=== PATIENT | female | born 1950 | race Caucasian/White ===

== ENCOUNTER 2018-04-22 15:03 | Outpatient (REF) | payer MEDICARE, BC, SELFPAY ==
[2018-04-22 21:22] LABS: Abs Immature Grans 0.01 k/cumm (0.0-0.09); Absolute Basophil Count 0.01 k/cumm (0.0-0.2); Absolute Eosinophil Count 0.15 k/cumm (0.0-0.7); Absolute Lymphocyte Count 1.49 k/cumm (1.2-3.4); Absolute Monocyte Count 0.57 k/cumm (0.11-0.7); Basophils % 0.1; Eosinophils % 2.1; HGB 11.7 g/dL (12.0-15.5); Immature Grans % 0.1; Lymphocytes % 21.2; Mean Corp. HGB Concentration 31.6 g/dL (32.0-36.0); Mean Corpuscular Volume 91.8 fL (80-95); Mean Platelet Volume 12.6 fL (8.0-11.0); Monocytes % 8.1; Neutrophils % 68.4; Platelet Count 262 x1000/uL (130-400); RBC 4.03 m/cumm (4.00-5.20); RBC Distribution Width 14.5 % (11.7-14.6); White Blood Cell Count 7.03 k/cumm (4.4-10.8)
[2018-04-22 21:56] LABS: ALT 18 U/L (12-78); AST 11 U/L (15-37); Albumin 3.2 g/dL (3.4-5.0); Alkaline Phosphatase 106 U/L (46-116); Anion Gap 12.6 mmol/L (3-11); BUN 28 mg/dL (7-18); Bilirubin, Total 0.2 mg/dL (0.2-1.0); CO2 21.4 mmol/L (21.0-32.0); CREATININE 1.31 mg/dL (0.55-1.02); Calcium 8.4 mg/dL (8.5-10.1); Chloride 108 mmol/L (98-107); Cholesterol 156 mg/dL (50-200); Estimated GFR 40.62 (mL/min/1.73m2); Glucose 124 mg/dL (70-100); HDL Cholesterol 61 mg/dL (40-60); LDL CHOLESTEROL 78 mg/dL (<100); Potassium 4.5 mmol/L (3.5-5.1); Sodium 142 mmol/L (136-145); Total Protein 6.6 g/dL (6.4-8.2); Triglyceride 104 mg/dL (30-150)
== END 2018-04-22 15:04 ==
LOC: NCHCN 15:03
PROVIDERS: PCP Family Medicine; Visit Provider Family Medicine
DX: N18.9 Chronic kidney disease, unspecified (principal); D64.9 Anemia, unspecified; I10 Essential (primary) hypertension
CPT/HCPCS: 80053; 80061; 83721; 85025

== ENCOUNTER 2019-04-13 10:33 | Outpatient (REF) | payer MEDICARE, BC, SELFPAY ==
[2019-04-13 22:56] LABS: Abs Immature Grans 0.01 k/cumm (0.0-0.09); Absolute Basophil Count 0.02 k/cumm (0.0-0.2); Absolute Eosinophil Count 0.17 k/cumm (0.0-0.7); Absolute Monocyte Count 0.36 k/cumm (0.11-0.7); Absolute Neutrophil Count 4.56 k/cumm (1.2-6.7); Basophils % 0.3; Eosinophils % 2.7; HCT 36.7 % (36.0-46.0); HGB 11.5 g/dL (12.0-15.5); Immature Grans % 0.2; Lymphocytes % 17.7; Mean Corp. HGB Concentration 31.3 g/dL (32.0-36.0); Mean Corpuscular Hemoglobin 29.3 pg (27.0-33.0); Mean Corpuscular Volume 93.6 fL (80-95); Mean Platelet Volume 12.8 fL (8.0-11.0); Monocytes % 5.8; Neutrophils % 73.3; Platelet Count 240 x1000/uL (130-400); RBC 3.92 m/cumm (4.00-5.20); RBC Distribution Width 16.6 % (11.7-14.6); White Blood Cell Count 6.22 k/cumm (4.4-10.8)
[2019-04-13 23:15] LABS: Anion Gap 9.1 mmol/L (3-11); BUN 55 mg/dL (7-18); CO2 19.9 mmol/L (21.0-32.0); CREATININE 2.02 mg/dL (0.55-1.02); Calcium 8.6 mg/dL (8.5-10.1); Calculated LDL 104 mg/dL; Chloride 109 mmol/L (98-107); Cholesterol 185 mg/dL (50-200); Estimated GFR 24.57 (mL/min/1.73m2); Glucose 89 mg/dL (70-100); HDL Cholesterol 46 mg/dL (40-60); Sodium 138 mmol/L (136-145); Triglyceride 175 mg/dL (30-150)
[2019-04-13 23:27] LABS: Potassium 6.6 mmol/L (3.5-5.1)
[2019-04-13 23:47] LABS: TSH (W/Ref FT4) 2.67 uIU/mL (0.36-3.74)
== END 2019-04-13 10:53 ==
LOC: NCHCN 10:33
PROVIDERS: PCP Family Medicine; Visit Provider Family Medicine
DX: N18.9 Chronic kidney disease, unspecified (principal); I48.0 Paroxysmal atrial fibrillation; R73.01 Impaired fasting glucose; R53.83 Other fatigue
CPT/HCPCS: 80048; 80061; 83721; 83036; 84443; 85025

== ENCOUNTER 2019-04-19 11:57 | Outpatient (REF) | payer MEDICARE, BC, SELFPAY ==
[2019-04-19 22:30] LABS: Anion Gap 15.4 mmol/L (3-11); BUN 42 mg/dL (7-18); CO2 19.6 mmol/L (21.0-32.0); CREATININE 1.77 mg/dL (0.55-1.02); Calcium 8.9 mg/dL (8.5-10.1); Chloride 111 mmol/L (98-107); Estimated GFR 28.61 (mL/min/1.73m2); Glucose 119 mg/dL (70-100); Potassium 5.9 mmol/L (3.5-5.1); Sodium 146 mmol/L (136-145)
== END 2019-04-19 12:17 ==
LOC: NCHCN 11:57
PROVIDERS: PCP Family Medicine; Visit Provider Family Medicine
DX: E87.6 Hypokalemia (principal); I10 Essential (primary) hypertension
CPT/HCPCS: 80048

== ENCOUNTER 2019-04-25 12:01 | Outpatient (REF) | payer MEDICARE, BC, SELFPAY ==
[2019-04-25 21:32] LABS: Anion Gap 11.6 mmol/L (3-11); BUN 41 mg/dL (7-18); CO2 21.4 mmol/L (21.0-32.0); CREATININE 1.46 mg/dL (0.55-1.02); Calcium 8.6 mg/dL (8.5-10.1); Chloride 110 mmol/L (98-107); Estimated GFR 35.73 (mL/min/1.73m2); Glucose 67 mg/dL (70-100); Potassium 5.7 mmol/L (3.5-5.1); Sodium 143 mmol/L (136-145)
== END 2019-04-25 12:21 ==
LOC: NCHCN 12:01
PROVIDERS: PCP Family Medicine; Visit Provider Family Medicine
DX: E87.6 Hypokalemia (principal)
CPT/HCPCS: 80048

== ENCOUNTER 2019-05-02 10:34 | Outpatient (REF) | payer MEDICARE, BC, SELFPAY ==
[2019-05-02 22:04] LABS: Abs Immature Grans 0.02 k/cumm (0.0-0.09); Absolute Basophil Count 0.03 k/cumm (0.0-0.2); Absolute Eosinophil Count 0.19 k/cumm (0.0-0.7); Absolute Lymphocyte Count 1.59 k/cumm (1.2-3.4); Absolute Monocyte Count 0.52 k/cumm (0.11-0.7); Absolute Neutrophil Count 5.26 k/cumm (1.2-6.7); Basophils % 0.4; Eosinophils % 2.5; HCT 35.8 % (36.0-46.0); HGB 10.9 g/dL (12.0-15.5); Immature Grans % 0.3; Lymphocytes % 20.9; Mean Corp. HGB Concentration 30.4 g/dL (32.0-36.0); Mean Corpuscular Hemoglobin 28.9 pg (27.0-33.0); Mean Platelet Volume 12.5 fL (8.0-11.0); Monocytes % 6.8; Neutrophils % 69.1; Platelet Count 300 x1000/uL (130-400); RBC 3.77 m/cumm (4.00-5.20); RBC Distribution Width 16.3 % (11.7-14.6); White Blood Cell Count 7.61 k/cumm (4.4-10.8)
[2019-05-02 22:24] LABS: Iron 68 ug/dL (50-175); Total Iron Binding Capacity 241 ug/dL (250-450); Transferrin Sat 28 % (15-50)
[2019-05-02 22:37] LABS: Anion Gap 9.1 mmol/L (3-11); BUN 30 mg/dL (7-18); CO2 24.9 mmol/L (21.0-32.0); CREATININE 1.37 mg/dL (0.55-1.02); Calcium 8.6 mg/dL (8.5-10.1); Chloride 106 mmol/L (98-107); Estimated GFR 38.46 (mL/min/1.73m2); Ferritin 155 ng/mL (8-388); Glucose 94 mg/dL (70-100); Sodium 140 mmol/L (136-145)
== END 2019-05-02 10:54 ==
LOC: NCHCN 10:34
PROVIDERS: PCP Family Medicine; Visit Provider Family Medicine
DX: D64.9 Anemia, unspecified (principal); I10 Essential (primary) hypertension
CPT/HCPCS: 80048; 82728; 83540; 83550; 85025

== ENCOUNTER 2019-06-15 11:23 | Outpatient (REF) | payer MEDICARE, BC, SELFPAY ==
[2019-06-15 21:22] LABS: Abs Immature Grans 0.01 k/cumm (0.0-0.09); HCT 37.1 % (36.0-46.0); HGB 11.5 g/dL (12.0-15.5); Mean Corpuscular Hemoglobin 29.6 pg (27.0-33.0); Mean Corpuscular Volume 95.4 fL (80-95); Mean Platelet Volume 11.9 fL (8.0-11.0); Platelet Count 346 x1000/uL (130-400); RBC 3.89 m/cumm (4.00-5.20); RBC Distribution Width 13.4 % (11.7-14.6); White Blood Cell Count 7.25 k/cumm (4.4-10.8)
[2019-06-15 21:38] LABS: Anion Gap 7.1 mmol/L (3-11); BUN 21 mg/dL (7-18); CO2 27.9 mmol/L (21.0-32.0); CREATININE 1.13 mg/dL (0.55-1.02); Calcium 8.7 mg/dL (8.5-10.1); Chloride 106 mmol/L (98-107); Estimated GFR 48.03 (mL/min/1.73m2); Glucose 93 mg/dL (70-100); Potassium 4.4 mmol/L (3.5-5.1); Sodium 141 mmol/L (136-145)
[2019-06-15 22:15] LABS: Absolute Lymphocyte Count 1.09 k/cumm (1.2-3.4); Absolute Monocyte Count 0.65 k/cumm (0.11-0.7); Absolute Neutrophil Count 5.51 k/cumm (1.2-6.7); Atypical Lymphocytes % 0
[2019-06-15 22:16] LABS: Diff Comment Manual Differential; Stomatocytes 2+
== END 2019-06-15 11:43 ==
LOC: NCHCN 11:23
PROVIDERS: PCP Family Medicine; Visit Provider Family Medicine
DX: D64.9 Anemia, unspecified (principal); I10 Essential (primary) hypertension
CPT/HCPCS: 80048; 85025

== ENCOUNTER 2019-07-15 11:57 | Outpatient (REF) | payer MEDICARE, BC, SELFPAY ==
[2019-07-15 21:11] LABS: HCT 39.4 % (36.0-46.0); HGB 11.9 g/dL (12.0-15.5); Mean Corp. HGB Concentration 30.2 g/dL (32.0-36.0); Mean Corpuscular Hemoglobin 28.5 pg (27.0-33.0); Mean Corpuscular Volume 94.3 fL (80-95); Mean Platelet Volume 12.4 fL (8.0-11.0); Platelet Count 330 x1000/uL (130-400); RBC 4.18 m/cumm (4.00-5.20); RBC Distribution Width 13.5 % (11.7-14.6); White Blood Cell Count 5.66 k/cumm (4.4-10.8)
[2019-07-15 21:19] LABS: Anion Gap 9.1 mmol/L (3-11); BUN 29 mg/dL (7-18); CO2 27.9 mmol/L (21.0-32.0); CREATININE 1.17 mg/dL (0.55-1.02); Calcium 8.7 mg/dL (8.5-10.1); Chloride 106 mmol/L (98-107); Estimated GFR 46.14 (mL/min/1.73m2); Glucose 113 mg/dL (70-100); Potassium 4.5 mmol/L (3.5-5.1); Sodium 143 mmol/L (136-145)
[2019-07-15 21:25] LABS: Hemoglobin A1C 5.4 % (4.5-6.2)
== END 2019-07-15 12:17 ==
LOC: NCHCN 11:57
PROVIDERS: PCP Family Medicine; Visit Provider Family Medicine
DX: R73.01 Impaired fasting glucose (principal); I10 Essential (primary) hypertension; D64.9 Anemia, unspecified; E87.6 Hypokalemia; E66.9 Obesity, unspecified
CPT/HCPCS: 80048; 85027; 83036

== ENCOUNTER 2020-06-13 14:57 | Outpatient (REF) | payer MEDICARE, BC, SELFPAY ==
[2020-06-13 22:10] LABS: HCT 45.4 % (36.0-46.0); HGB 14.5 g/dL (11.2-15.7); MCH 28.8 pg (27.0-33.0); MCHC 31.9 % (32.0-36.0); MCV 90.3 fL (80-95); MPV 12.5 fL (8.0-11.0); Platelet Count 290 10^3/uL (130-400); RBC 5.03 10^6/uL (3.93-5.22); RDW 14.4 % (11.7-14.6); RDW-SD 47.2 fL; WBC 5.84 10^3/uL (4.4-10.8)
[2020-06-13 22:15] LABS: Anion Gap 8.4 mmol/L (3-11); BUN 22 mg/dL (7-18); CO2 26.6 mmol/L (21.0-32.0); CREATININE 0.94 mg/dL (0.55-1.02); Calcium 8.7 mg/dL (8.5-10.1); Chloride 106 mmol/L (98-107); Estimated GFR 59.22 (mL/min/1.73m2); Glucose 94 mg/dL (74-106); Potassium 4.4 mmol/L (3.5-5.1); Sodium 141 mmol/L (136-145)
[2020-06-13 22:25] LABS: Hemoglobin A1C 5.7 % (<5.7)
== END 2020-06-13 15:17 ==
LOC: NCHCN 14:57
PROVIDERS: PCP Family Medicine; Visit Provider Nurse Practitioner Family
DX: R53.83 Other fatigue (principal); N18.9 Chronic kidney disease, unspecified; E78.5 Hyperlipidemia, unspecified; R79.89 Other specified abnormal findings of blood chemistry; E66.9 Obesity, unspecified
CPT/HCPCS: 80048; 85027; 83036

== ENCOUNTER 2022-06-17 10:16 | Outpatient (REF) | payer MEDICARE, BC, SELFPAY ==
[2022-06-17 16:27] LABS: Abs Immature Grans 0.02 10^3/uL (0.0-0.06); Absolute Basophil Count 0.02 10^3/uL (0.0-0.2); Absolute Eosinophil Count 0.07 10^3/uL (0.0-0.7); Absolute Monocyte Count 0.36 10^3/uL (0.1-0.8); Absolute Neutrophil Count 4.49 10^3/uL (1.2-6.7); Basophils % 0.3; Eosinophils % 1.2; HCT 39.9 % (36.0-46.0); HGB 12.7 g/dL (11.2-15.7); Immature Grans % 0.3; Lymphocytes % 18.2; MCH 29.8 pg (27.0-33.0); MCHC 31.8 % (32.0-36.0); MCV 94 fL (80-95); MPV 12.5 fL (8.0-11.0); Monocytes % 5.9; Neutrophils % 74.1; Platelet Count 257 10^3/uL (130-400); RBC 4.26 10^6/uL (3.93-5.22); RDW 13.4 % (11.7-14.6); RDW-SD 45.7 fL; WBC 6.06 10^3/uL (4.4-10.8)
[2022-06-17 16:58] LABS: ALT 17 U/L (14-59); AST 12 U/L (15-37); Albumin 3.3 g/dL (3.4-5.0); Alkaline Phosphatase 105 U/L (46-116); Anion Gap 5.7 mmol/L (3-11); BUN 28 mg/dL (7-18); Bilirubin, Total 0.3 mg/dL (0.2-1.0); CO2 28.3 mmol/L (21.0-32.0); Calcium 8.7 mg/dL (8.5-10.1); Calculated LDL 69 mg/dL (<100); Chloride 104 mmol/L (98-107); Cholesterol 155 mg/dL (<200); Estimated GFR 60.61 (mL/min/1.73m2); Glucose 107 mg/dL (74-106); HDL Cholesterol 59 mg/dL (40-60); Potassium 4.4 mmol/L (3.5-5.1); Sodium 138 mmol/L (136-145); Total Protein 6.6 g/dL (6.4-8.2); Triglyceride 136 mg/dL (<150)
[2022-06-17 17:01] LABS: Hemoglobin A1C 5.7 % (<5.7)
== END 2022-06-17 10:17 | disposition home or self-care (01) ==
LOC: NCHCN 10:16
PROVIDERS: PCP Family Medicine; Visit Provider Nurse Practitioner Family
DX: I10 Essential (primary) hypertension (principal); I48.0 Paroxysmal atrial fibrillation; E66.8 Other obesity; R73.09 Other abnormal glucose; D64.9 Anemia, unspecified
CPT/HCPCS: 80053; 80061; 83036; 85025